=== PATIENT | male | born 1990 | race American Indian/Alaskan Native ===

== ENCOUNTER 2020-02-09 10:09 | Emergency (ER) | payer SELFPAY ==
[2020-02-09] MEDS ORDERED: NITROGLYCERIN 2% OINT 1 GM TP ONE (10:35)
[2020-02-09] MEDS ORDERED: fentaNYL 100 MCG/2 ML INJ IV ONE (10:35)
[2020-02-09] MEDS ORDERED: ONDANSETRON 4 MG/2 ML INJ IV ONE (10:35)
--- NOTE | 2020-02-09 10:38 | Emergency Department Report ---
HPI - General Chief Complaint: Chest Pain Time Seen by Provider: 02/09/20 10:28 - HPI HPI: Room 4 The patient is a 29-year-old male present with chief complaint of chest pain. The patient states he awakened this morning with sharp pain in the left chest radiating to his back. Patient states the pain is been constant and associated with shortness of breath and diaphoresis. Patient admits to pleurisy. Patient denies nausea or vomiting. Patient gives his chest pain a score of 6/10. Patient denies any preceding trauma. Patient states he is never had a stress test or cardiac catheterization ED Past Medical Hx - Past Medical History Previous Medical History?: No - Surgical History Additional Surgical History: Herniorrhaphy - Family History Family history: no significant - Social History Smoking Status: Never Smoker Substance Use Type: None (Denies illicit drug use), Alcohol (Occasional) ED Review of Systems ROS: Stated complaint: CHEST PAIN Other details as noted in HPI Constitutional: diaphoresis Respiratory: shortness of breath Cardiovascular: chest pain Endocrine: no symptoms reported Gastrointestinal: denies: nausea, vomiting Physical Exam - Physical Exam Physical Exam: GENERAL: The patient is well-developed well-nourished male sitting on stretcher not appearing to be in acute distress. [] HEENT: Normocephalic. Atraumatic. Extraocular motions are intact. Patient has moist mucous membranes. NECK: Supple. Trachea midline CHEST/LUNGS: Clear to auscultation. Breath sounds heard bilaterally. There is no respiratory distress noted. HEART/CARDIOVASCULAR: Regular. There is no tachycardia. There is no gallop rub or murmur. ABDOMEN: Abdomen is soft, nontender. Patient has normal bowel sounds. There is no abdominal distention. SKIN: There is no rash. There is no edema. There is no diaphoresis. and gait. MUSCULOSKELETAL: There is no evidence of acute injury. ED Course - Consultations Consultation #1: 02/09/20 11:39 EKG sent to and discussed with Dr. Burnett- [facility] STEMI ED Medical Decision Making - Lab Data Result diagrams: 02/09/20 10:41 02/09/20 10:41 Laboratory Tests 02/09/20 02/09/20 02/09/20 10:41 10:41 10:41 WBC 5.2 RBC 5.44 H Hgb 14.7 Hct 43.9 MCV 81 L MCH 27 L MCHC 34 RDW 13.0 L Plt Count 268 Lymph % (Auto) 31.5 [place] % (Auto) 8.4 H Eos % (Auto) 1.7 Baso % (Auto) 0.8 Lymph # (Auto) 1.7 [place] # (Auto) 0.4 Eos # (Auto) 0.1 Baso # (Auto) 0.0 Seg Neutrophils % 57.6 Seg Neutrophils # 3.0 D-Dimer 139.35 Sodium 140 Potassium 4.1 Chloride 104.8 Carbon Dioxide 26 Anion Gap 13 BUN 11 Creatinine 1.1 Estimated GFR > 60 BUN/Creatinine Ratio 10 Glucose 95 Calcium 9.1 Total Creatine Kinase 205 H CK-MB (CK-2) 1.5 CK-MB (CK-2) Rel Index 0.7 Troponin T < 0.010 - EKG Data -: EKG Interpreted by Me EKG shows normal: sinus rhythm Rate: normal - EKG Data When compared to previous EKG there are: previous EKG unavailable Interpretation: nonspecific ST-T wave ana maria - Radiology Data Radiology results: report reviewed (Chest x-ray), image reviewed (Chest x-ray) interpreted by me: Chest x-ray-no focal infiltrates, no pneumothorax Findings [facility] [address] [place] [address] XRay Report Signed Patient: FRENCH BECKETT MR#: [id number] : 1990 Acct:[id number] Age/Sex: 29 / M ADM Date: 02/09/20 Loc: ED Attend ing Dr: Ordering Physician: NAYELI HOLLIS MD Date of Service: 02/09/20 Procedure(s): XR chest 1V ap Accession Number(s): [id number] cc: NAYELI HOLLIS MD Fluoro Time In Minutes: CHEST 1 VIEW 02/09/2020 10:28 AM INDICATION / CLINICAL INFORMATION: chest pain. COMPARISON: None available. FINDINGS: SUPPORT DEVICES: None. HEART / MEDIASTINUM: No significant abnormality. LUNGS / PLEURA: No significant pulmonary or pleural abnormality. No pneumothorax. ADDITIONAL FINDINGS: No significant additional findings. IMPRESSION: No acute cardiopulmonary abnormality. Signer Name: Michelle León MD Signed: 02/09/20 10:46 AM Workstation Name: [id number] Transcribed By: SS Dictated By: MICHELLE LEÓN Electronically Authenticated By: MICHELLE LEÓN Signed Date/Time: 02/09/20 104 DD/ TD/TT: - Differential Diagnosis PE, ACS, pneumothorax, GERD, pericarditis Critical care attestation.: If time is entered above; I have spent that time in minutes in the direct care of this critically ill patient, excluding procedure time. ED Disposition Clinical Impression: Chest pain Disposition: OP ADMIT IP TO THIS HOSP Is pt being admited?: Yes Does the pt Need Aspirin: Yes Condition: Fair Instructions: Chest Pain (ED) Time of Disposition: 11:45 (Hospitalist paged) HEART Score - HEART Score History: Highly suspicious EKG: Non-specific Age: < 45 Risk factors: No known risk factors Troponin: Troponin T < 0.010 ng/mL (0.00-0.029) 02/09/20 10:41 Troponin: < normal limit HEART Score: 3
--- NOTE | 2020-02-09 10:51 | XRay Report ---
CHEST 1 VIEW 02/09/2020 10:28 AM INDICATION / CLINICAL INFORMATION: chest pain. COMPARISON: None available. FINDINGS: SUPPORT DEVICES: None. HEART / MEDIASTINUM: No significant abnormality. LUNGS / PLEURA: No significant pulmonary or pleural abnormality. No pneumothorax. ADDITIONAL FINDINGS: No significant additional findings. IMPRESSION: No acute cardiopulmonary abnormality. Signer Name: Nikolas León MD Signed: 02/09/2020 10:46 AM Workstation Name: [id number]
[2020-02-09 10:58] LABS: Basophils % (Auto) 0.8 % (0.0-1.8); Eosinophils # (Auto) 0.1 K/mm3 (0.0-0.4); Eosinophils % (Auto) 1.7 % (0.0-4.3); Hematocrit 43.9 % (35.5-45.6); Hemoglobin 14.7 gm/dl (11.8-15.2); Lymphocytes # (Auto) 1.7 K/mm3 (1.2-5.4); Lymphocytes % (Auto) 31.5 % (13.4-35.0); Mean Corpuscular HGB Conc 34 % (32-34); Mean Corpuscular Volume 81 fl (84-94); Monocytes # (Auto) 0.4 K/mm3 (0.0-0.8); Monocytes % (Auto) 8.4 % (0.0-7.3); Platelet Count 268 K/mm3 (140-440); Red Blood Count 5.44 M/mm3 (3.65-5.03)
[2020-02-09] MEDS ORDERED: ASPIRIN 325 MG TAB PO ONE (11:11)
[2020-02-09 11:21] LABS: Creatine Kinase MB 1.5 ng/mL (0.0-4.0)
[2020-02-09 11:22] LABS: BUN/Creatinine Ratio 10; Blood Urea Nitrogen 11 mg/dL (9-20); Calcium 9.1 mg/dL (8.4-10.2); Hemolysis Index 9
--- NOTE | 2020-02-09 13:13 | Cat Scan Report ---
CT chest w con INDICATION / CLINICAL INFORMATION: chest pain/dypsnea. TECHNIQUE: All CT scans at this location are performed using CT dose reduction for ALARA by means of automated e xposure control. COMPARISON: None available. FINDINGS: No significant parenchymal abnormality is seen in the lungs. No enlarged mediastinal or hilar lymph n odes are seen. There are calcified subcarinal and left hilar lymph nodes present. The adrenal glands are normal. No significant skeletal abnormality is identified. IMPRESSION: Old granulomatous disease with calcified mediastinal and left hilar lymph nodes. No acute findings Signer Name: Sameer León MD FACR Signed: 02/09/2020 1:08 PM Workstation Name: [id number]
--- NOTE | 2020-02-09 13:41 | Event Note ---
Date: 02/09/20 29-year-old male with obesity presents to ED for evaluation. Patient seen and evaluated in the emergency department. Lab and imaging studies reviewed. Patient treated with serial cardiac enzymes, EKG and telemetry monitoring which was negative for acute ischemia. Patient underwent CT scan of the chest which revealed granulomatous disease. Patient medically optimized. Patient discharged home and instructed to follow-up with primary care physician within 3 to 5 days and to follow-up with pulmonology PRN for further care. Physical Exam: GENERAL: The patient is well-developed well-nourished male sitting on stretcher not appearing to be in acute distress. [] HEENT: Normocephalic. Atraumatic. Extraocular motions are intact. Patient has moist mucous membranes. NECK: Supple. Trachea midline CHEST/LUNGS: Clear to auscultation. Breath sounds heard bilaterally. There is no respiratory distress noted. HEART/CARDIOVASCULAR: Regular. There is no tachycardia. There is no gallop rub or murmur. ABDOMEN: Abdomen is soft, nontender. Patient has normal bowel sounds. There is no abdominal distention. SKIN: There is no rash. There is no edema. There is no diaphoresis. and gait. MUSCULOSKELETAL: There is no evidence of acute injury.
[2020-02-09 14:08] VITALS: BP 135/85
== END 2020-02-09 16:15 | disposition admitted as inpatient to this hospital (09) ==
LOC: ED 10:09
DX: R07.9 Chest pain, unspecified (principal); Z88.8 Allergy status to other drugs, medicaments and biological substances; Z79.899 Other long term (current) drug therapy
CPT/HCPCS: 36415; 71045; 71260; 80048; 82550; 82553; 84484; 85025; 85379; 93005; 96374; 96375; 99285; J2405; J3010; Q9967

== ENCOUNTER 2021-02-12 21:32 | Emergency (ER) | payer SELFPAY ==
[2021-02-12] MEDS ORDERED: ONDANSETRON 4 MG/2 ML INJ IV ONE (21:33)
[2021-02-12] MEDS ORDERED: MORPHINE 4 MG/1 ML INJ IV ONE (21:33)
[2021-02-12] MEDS ORDERED: SODIUM CHLORIDE 0.9% 1000 ML 1,000 ML IV ONE (21:33)
[2021-02-12] MEDS ORDERED: TETANUS,DIPH,PERTUSS(ACELL) VACCINE 0.5 ML SYRINGE IM ONE (21:36)
[2021-02-12] MEDS ORDERED: PIPERACIL/TAZOBACTA 4.5/NS 100 4.5 GM/100 ML VIAL IV ONE (21:36)
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
[2021-02-12] MEDS ORDERED: LIDOCAINE (1%) 10 MG/1 ML VIAL 20 ML MDV INFILTRATI ONE (23:00)
[2021-02-12 23:04] LABS: Alanine Aminotransferase 48 units/L (7-56); Albumin 4.8 g/dL (3.9-5); BUN/Creatinine Ratio 8; Blood Urea Nitrogen 9 mg/dL (9-20); Hemolysis Index 5
[2021-02-12 23:13] LABS: Basophils % (Auto) 0.3 % (0.0-1.8); Hematocrit 45.7 % (35.5-45.6); Hemoglobin 15.3 gm/dl (11.8-15.2); Lymphocytes % (Auto) 9.8 % (13.4-35.0); Mean Corpuscular HGB Conc 34 % (32-34); Mean Corpuscular Volume 81 fl (84-94); Monocytes # (Auto) 0.7 K/mm3 (0.0-0.8); Monocytes % (Auto) 6.3 % (0.0-7.3); Platelet Count 315 K/mm3 (140-440); Red Blood Count 5.63 M/mm3 (3.65-5.03); Red Cell Distribution Width 13.9 % (13.2-15.2)
[2021-02-12 23:22] LABS: INR 0.97 (0.87-1.13)
[2021-02-12 23:23] LABS: Partial Thromboplastin Time 24.5 Sec. (24.2-36.6)
[2021-02-12] MEDS ORDERED: HYDROcodone/ACETAMINOPHEN 5-325 MG TAB PO ONE (23:23)
[2021-02-12] MEDS ORDERED: SULFAMETHOXAZOLE/TRIMETHOPRIM 800/160MG DS TAB PO ONE (23:23)
[2021-02-13 02:58] VITALS: BP 113/77
== END 2021-02-13 02:45 | disposition home or self-care (01) ==
LOC: ED 21:32
DX: S31.119A Laceration without foreign body of abdominal wall, unspecified quadrant without penetration into peritoneal cavity, initial encounter (principal); Z87.891 Personal history of nicotine dependence; Z72.89 Other problems related to lifestyle; Z79.899 Other long term (current) drug therapy; X99.1XXA Assault by knife, initial encounter; Y93.89 Activity, other specified; Y92.89 Other specified places as the place of occurrence of the external cause; Y99.8 Other external cause status
CPT/HCPCS: 12002; 36415; 74177; 80053; 83690; 85025; 85610; 85730; 86850; 86900; 86901; 90471; 90715; 99284; Q9967

== ENCOUNTER 2021-02-23 15:43 | Emergency (ER) | payer SELFPAY ==
[2021-02-23] MEDS ORDERED: ACETAMINOPHEN 500 MG TAB PO ONE (16:51)
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
[2021-02-23 17:02] VITALS: BP 121/73
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
[2021-02-23] MEDS ORDERED: BALANCED SALT IRRIG (BSS) OPHTH SOLN 15 ML OU ONE (18:46)
[2021-02-23] MEDS ORDERED: FLUORESCEIN 1 MG STRIP OP ONE (18:46)
[2021-02-23] MEDS ORDERED: TETANUS,DIPH,PERTUSS(ACELL) VACCINE 0.5 ML SYRINGE IM ONE (18:49)
[2021-02-23] MEDS ORDERED: ERYTHROMYCIN 5 MG/1 GM OPHTH OINT OU ONE (19:00)
== END 2021-02-23 21:29 | disposition short-term general hospital (02) ==
LOC: ED 15:43
DX: S02.32XA Fracture of orbital floor, left side, initial encounter for closed fracture (principal); F17.200 Nicotine dependence, unspecified, uncomplicated; G58.8 Other specified mononeuropathies; Y04.0XXA Assault by unarmed brawl or fight, initial encounter; Y93.89 Activity, other specified; Y92.89 Other specified places as the place of occurrence of the external cause; Y99.8 Other external cause status
CPT/HCPCS: 70450; 70480; 72125; 90471; 90715; 99285